=== PATIENT | female | born 1975 | race African-American/Black ===

== ENCOUNTER 2022-06-19 00:12 | Emergency (ER) | payer OTHER ==
[~2022-06-19] VITALS: Ht 172.7 cm; Wt 78.0 kg
[2022-06-19 00:16] VITALS: BP 152/85
[2022-06-19 01:20] LABS: BASOPHILS % 0.7 % (0.0-2.0); EOSINOPHILS % 2.9 % (0.0-5.0); HEMATOCRIT. 44.8 % (36.0-48.0); HEMOGLOBIN. 15.1 g/dL (12.0-16.0); LYMPHOCYTES % 32.1 % (20.0-50.0); MEAN CORPUSCULAR HEMOGLOBIN 31.8 pg (28.0-32.0); MEAN CORPUSCULAR VOLUME 94.3 fL (81.0-99.0); MEAN PLATELET VOLUME 6.9 fl (7.4-10.4); NEUTROPHILS % 54.3 % (40.0-76.0); PLATELET 390 x1000/uL (130-400); RED BLOOD CELL COUNT 4.76 mill/uL (4.2-5.4)
[2022-06-19 01:27] LABS: CHLORIDE 111 mEq/L (98-107)
[2022-06-19 01:38] LABS: HCG SCREEN NEGATIVE
== END 2022-06-19 02:15 | disposition home or self-care (01) ==
LOC: ER 00:12
DX: R07.2 Precordial pain (principal); F41.9 Anxiety disorder, unspecified; F32.A Depression, unspecified; Z88.0 Allergy status to penicillin
CPT/HCPCS: 36415; 71045; 80053; 84484; 84703; 85025; 93005; 99285